=== PATIENT | female | born 1970 | race Caucasian/White ===

== ENCOUNTER 2017-01-01 12:32 | Inpatient (IN) | payer BC ==
[2016-12-26 10:59] LABS: BASOPHILS 0.1 %; BASOPHILS ABSOLUTE 0.01 10/3/uL (0.0-0.16); EOSINOPHILS 0.7 %; EOSINOPHILS ABSOLUTE 0.05 10/3/uL (0.0-0.53); HEMATOCRIT 42.4 % (36.0-48.0); HEMOGLOBIN 14.4 g/dL (12.0-16.0); IMMATURE GRANULOCYTES 0.1 %; IMMATURE GRANULOCYTES ABSOLUTE 0.01 10/3/uL (0.0-0.11); LYMPHOCYTES 24.6 %; LYMPHOCYTES ABSOLUTE 1.69 10/3/uL (0.67-4.30); MEAN CORPUSCULAR HEMOGLOB 31.8 pg (26.0-34.0); MEAN CORPUSCULAR VOLUME 93.6 fL (80-100); MEAN PLATELET VOLUME 9.5 fL (9.2-13.0); MONOCYTES 7.3 %; NEUTROPHILS 67.2 %; PLATELET COUNT 253 10/3/uL (150-400); RBC DISTRIBUTION WIDTH 13.4 % (12.0-16.0); RED CELL COUNT 4.53 10/6/uL (4.0-5.6); WHITE BLOOD CELLS 6.9 10/3/uL (4.5-10.5)
[2016-12-26 11:01] LABS: MANUAL DIFF NO %
[2016-12-26 11:07] LABS: PARTIAL THROMBO TIME 28.5 SEC (22.5-37.2); PROTIME (NOT ORD) 13.5 SEC (12.0-14.5)
--- NOTE | ~2017-01-01 | DS ---
Discharge Summary [facility] [address] [place]. [address] NAME: HERNAN ROGERS : 70 STATUS : DIS IN PAT#: [id number] AGE: 46 ADM/REG DATE : 01/01/17 MR#: [id number] REPORT SERV DATE: 01/15/17 DICTATED BY: SONG MOYER JR. DATE: 01/14/17 REPORT STATUS : Draft TRANSCRIBED BY: RADHA DATE: 01/14/17 Data Collection from hospitalization DISCHARGE DIAGNOSES: 1. Ventral hernia. 2. Hypertension. 3. Hypothyroidism. 4. Anxiety and depression. 5. Migraines. 6. Sleep apnea. 7. Acid reflux. 8. Tobacco use. CONSULTATIONS: None. PROCEDURES PERFORMED: Laparoscopic repair of ventral hernia on 01/01/2017. MEDICATIONS: ProAir two puffs via inhaler as needed, Wellbutrin 75 mg every morning, Lasix 40 mg every morning, Neurontin 600 mg three times a day, hydrochlorothiazide 25 mg every morning, Synthroid 75 mcg every morning, Prinivil 5 mg every morning, Prilosec 40 mg every morning, and Percocet 5/325 one to two tablets every six hours as needed. CONDITION AT DISCHARGE: Stable. DISPOSITION: The patient was discharged home on a soft diet with activities as instructed. She would follow up with me two weeks following discharge. HOSPITAL COURSE: This is a 46-year-old female who has a symptomatic ventral hernia. She had undergone previous laparoscopic surgery. Imaging did show herniation at the incision, which was superior to the umbilicus and also a separate site at the umbilical area. Treatment options were discussed and it was elected to proceed with surgical intervention. She was admitted to the hospital at this time for further evaluation and treatment. Upon admission, she was taken to the operating room where she underwent the above-mentioned procedure. She tolerated this well, and there were no complications. On postop day #1, she did complain of pain. Her abdomen was soft. Urine output was okay. Over the next couple of days, she continued to progress. Discharge planning was performed. We encouraged her to ambulate. On 01/04/2017, she continued to do well. Discharge instructions were given. Due to her improved and stable condition, she was discharged home with the above-stated instructions. Information collected by: Kacey Galvez I submit the above information as my discharge summary. TG/MODL Discharge Summary [place] [address] [place]. [address] NAME: HERNAN ROGERS : 70 STATUS : DIS IN PAT#: [id number] AGE: 46 ADM/REG DATE : 01/01/17 MR#: [id number] REPORT SERV DATE: 01/15/17 DICTATED BY: SONG MOYER JR. DATE: 01/14/17 REPORT STATUS : Draft TRANSCRIBED BY: MODJalen DATE: 01/14/17 Song Moyer Jr., M.D. / [id number] CC: Freda Knutson Jr., SARA E
--- NOTE | ~2017-01-01 | OP ---
Record Of Operation [facility] [address] [place]. [address] NAME: HERNAN ROGERS : 70 STATUS : ADM IN PAT#: [id number] AGE: 46 ADM/REG DATE : 01/01/17 MR#: [id number] REPORT SERV DATE: 01/02/17 DICTATED BY: SONG MOYER JR. DATE: 01/01/17 REPORT STATUS : Draft TRANSCRIBED BY: RADHA DATE: 01/01/17 DATE OF PROCEDURE: 01/01/2017 SURGEON: Sogn Moyer M.D. LOAD DISPATCHER LOCAL: [facility]. PROCEDURE: Laparoscopic repair of ventral hernia. PREOPERATIVE DIAGNOSIS: Ventral hernia. POSTOPERATIVE DIAGNOSIS: Ventral hernia. ANESTHESIA: General. INDICATIONS: This patient presented with symptomatic ventral hernia. She had previous laparoscopic surgery. Imaging did show herniation at the incision which was superior to the umbilicus and also a separate site at the umbilical area. FINDINGS: On laparoscopic exam of the abdomen, there was evidence of hernia superior to the umbilicus and also one at the umbilical site. There was an omentum that was incarcerated within the hernia sac that did require dissection with ligature and hemostasis of the extensive omental tissue within the sac; this was taken down. The hernia sacs were identified, and it was elected to proceed with an underlay Zenapro mesh due to the patient's obesity and risk factors. A 10- x 15-cm Zenapro hybrid mesh was utilized, sutures were placed of 12, 6, 3, and 9 of 0 Novafil. The mesh was introduced in the peritoneal cavity after hydration and appropriately oriented. Suture pass utilized to secure the sutures in place and then the absorbable tacker was utilized to secure the mesh to the overlying peritoneum. The sutures were tied, and this produced satisfactory coverage of the defect. Then, the right upper quadrant incision was closed at the fascial layer with 0 Vicryl placed through the suture passer, and the left upper quadrant was closed with fascial PDS. The wounds were then closed with dermal Monocryl. It should be noted that an open approach was utilized to the left upper quadrant with a balloon-tipped trocar, a 10 in the right and 2.5 for the right left lower quadrant. Sutures and sterile dressings were applied. The patient left the operating room in satisfactory condition. ESTIMATED BLOOD LOSS: 30 mL. JG/RADHA Song Moyer Jr., M.D. / [id number] Record Of Operation [address] [address] NAME: HERNAN ROGERS : 70 STATUS : ADM IN PAT#: [id number] AGE: 46 ADM/REG DATE : 01/01/17 MR#: [id number] REPORT SERV DATE: 01/02/17 DICTATED BY: SONG MOYER JR. DATE: 01/01/17 REPORT STATUS : Draft TRANSCRIBED BY: RADHA DATE: 01/01/17 CC: Song Moyer Jr., M.D.
[~2017-01-01 12:32] MED LIST: HYDROCHLOROT25 MG PO; L40 PO; NEUR600 PO; NORCO1 TAB PO; PRILOSEC40 MG PO; PRIN5 PO; PROAIR HFA INH; SYN075 PO; WELL75 PO
[2017-01-01 13:14] LABS: BUN (BLOOD UREA NITROGEN) 8 MG/DL (6-23); CALCIUM, SERUM 8.5 MG/DL (8.5-10.4); CHLORIDE, SERUM 106 MMOL/L (96-112); CREATININE 0.93 MG/DL (0.55-1.02); GFR AFRICAN AMERICAN 85 ML/MIN (>=60); GFR NON AFRICAN AMERICAN 74 ML/MIN (>=60); GLUCOSE, SERUM 97 MG/DL (60-99); POTASSIUM, SERUM 3.9 MMOL/L (3.5-5.3); SODIUM, SERUM 141 MMOL/L (135-148)
[2017-01-01 13:15] LABS: CO2 (CARBON DIOXIDE) 23 MMOL/L (24-34)
[2017-01-01 18:56] LABS: BASOPHILS 0 %; EOSINOPHILS 0 %; HEMOGLOBIN 14.7 g/dL (12.0-16.0); IMMATURE GRANULOCYTES 0.3 %; IMMATURE GRANULOCYTES ABSOLUTE 0.03 10/3/uL (0.0-0.11); LYMPHOCYTES 5.9 %; LYMPHOCYTES ABSOLUTE 0.64 10/3/uL (0.67-4.30); MEAN CORPUS HGB CONC 33.4 g/dL (32.0-36.0); MEAN CORPUSCULAR HEMOGLOB 31.7 pg (26.0-34.0); MEAN CORPUSCULAR VOLUME 94.8 fL (80-100); MEAN PLATELET VOLUME 9.5 fL (9.2-13.0); MONOCYTES 0.9 %; NEUTROPHILS 92.9 %; NEUTROPHILS ABSOLUTE 10.02 10/3/uL (2.02-8.40); PLATELET COUNT 221 10/3/uL (150-400); RBC DISTRIBUTION WIDTH 13.1 % (12.0-16.0); RED CELL COUNT 4.64 10/6/uL (4.0-5.6)
[2017-01-01 18:57] LABS: MANUAL DIFF NO %; WHITE BLOOD CELLS 10.8 10/3/uL (4.5-10.5)
[2017-01-01 19:08] LABS: BUN (BLOOD UREA NITROGEN) 8 MG/DL (6-23); CALCIUM, SERUM 8.4 MG/DL (8.5-10.4); CHLORIDE, SERUM 105 MMOL/L (96-112); GFR AFRICAN AMERICAN 78 ML/MIN (>=60); GFR NON AFRICAN AMERICAN 68 ML/MIN (>=60); GLUCOSE, SERUM 110 MG/DL (60-99); SODIUM, SERUM 141 MMOL/L (135-148)
[2017-01-01 19:09] LABS: CO2 (CARBON DIOXIDE) 28 MMOL/L (24-34)
[2017-01-02 06:21] LABS: BASOPHILS 0.2 %; BASOPHILS ABSOLUTE 0.03 10/3/uL (0.0-0.16); EOSINOPHILS 0.2 %; EOSINOPHILS ABSOLUTE 0.02 10/3/uL (0.0-0.53); HEMATOCRIT 40.6 % (36.0-48.0); HEMOGLOBIN 13.8 g/dL (12.0-16.0); IMMATURE GRANULOCYTES 0.6 %; IMMATURE GRANULOCYTES ABSOLUTE 0.07 10/3/uL (0.0-0.11); LYMPHOCYTES ABSOLUTE 0.85 10/3/uL (0.67-4.30); MANUAL DIFF NO %; MEAN CORPUSCULAR HEMOGLOB 31.6 pg (26.0-34.0); MEAN CORPUSCULAR VOLUME 92.9 fL (80-100); MEAN PLATELET VOLUME 9.6 fL (9.2-13.0); MONOCYTES 2.9 %; MONOCYTES ABSOLUTE 0.35 10/3/uL (0.21-1.20); NEUTROPHILS 89.1 %; NEUTROPHILS ABSOLUTE 10.74 10/3/uL (2.02-8.40); PLATELET COUNT 225 10/3/uL (150-400); RBC DISTRIBUTION WIDTH 13.4 % (12.0-16.0); RED CELL COUNT 4.37 10/6/uL (4.0-5.6); WHITE BLOOD CELLS 12.1 10/3/uL (4.5-10.5)
[2017-01-02 07:37] LABS: CHLORIDE, SERUM 104 MMOL/L (96-112); GLUCOSE, SERUM 123 MG/DL (60-99); SODIUM, SERUM 137 MMOL/L (135-148)
[2017-01-02 07:39] LABS: BUN (BLOOD UREA NITROGEN) 33 MG/DL (6-23); CALCIUM, SERUM 9.8 MG/DL (8.5-10.4); CO2 (CARBON DIOXIDE) 17 MMOL/L (24-34); CREATININE 1.54 MG/DL (0.55-1.02); GFR AFRICAN AMERICAN 46 ML/MIN (>=60); GFR NON AFRICAN AMERICAN 40 ML/MIN (>=60)
[2017-01-02 07:40] LABS: POTASSIUM, SERUM 5.4 MMOL/L (3.5-5.3)
[2017-01-02 16:09] LABS: BUN (BLOOD UREA NITROGEN) 11 MG/DL (6-23); CALCIUM, SERUM 8.2 MG/DL (8.5-10.4); CHLORIDE, SERUM 102 MMOL/L (96-112); CO2 (CARBON DIOXIDE) 30 MMOL/L (24-34); CREATININE 0.99 MG/DL (0.55-1.02); GFR AFRICAN AMERICAN 79 ML/MIN (>=60); GFR NON AFRICAN AMERICAN 68 ML/MIN (>=60); GLUCOSE, SERUM 101 MG/DL (60-99); POTASSIUM, SERUM 4.6 MMOL/L (3.5-5.3); SODIUM, SERUM 139 MMOL/L (135-148)
[2017-01-03 07:09] LABS: HEMATOCRIT 40.5 % (36.0-48.0); MEAN CORPUSCULAR HEMOGLOB 31.2 pg (26.0-34.0); MEAN PLATELET VOLUME 10.8 fL (9.2-13.0); PLATELET COUNT 195 10/3/uL (150-400); RBC DISTRIBUTION WIDTH 13.5 % (12.0-16.0); RED CELL COUNT 4.17 10/6/uL (4.0-5.6); WHITE BLOOD CELLS 11.5 10/3/uL (4.5-10.5)
[2017-01-03 07:10] LABS: MANUAL DIFF YES %; MEAN CORPUS HGB CONC 32.1 g/dL (32.0-36.0); MEAN CORPUSCULAR VOLUME 97.1 fL (80-100)
[2017-01-03 07:18] LABS: BUN (BLOOD UREA NITROGEN) 10 MG/DL (6-23); CALCIUM, SERUM 7.9 MG/DL (8.5-10.4); CHLORIDE, SERUM 107 MMOL/L (96-112); CREATININE 0.87 MG/DL (0.55-1.02); GFR AFRICAN AMERICAN 93 ML/MIN (>=60); GFR NON AFRICAN AMERICAN 80 ML/MIN (>=60); GLUCOSE, SERUM 110 MG/DL (60-99); SODIUM, SERUM 141 MMOL/L (135-148)
[2017-01-03 07:23] LABS: CO2 (CARBON DIOXIDE) 22 MMOL/L (24-34); POTASSIUM, SERUM 5.2 MMOL/L (3.5-5.3)
[2017-01-03 07:55] LABS: BAND NEUTROPHILS 7 %; LYMPHOCYTES 14 %; LYMPHOCYTES ABSOLUTE (CALC) 1.61 10/3/uL (0.67-4.30); MONOCYTES 2 %; MONOCYTES ABSOLUTE (CALC) 0.23 10/3/uL (0.21-1.20); NEUTROPHILS ABSOLUTE (CALC) 9.66 10/3/uL (2.02-8.40); PLATELET ESTIMATE ADQ (ADEQUATE); SEGMENTED NEUTROPHIL (0) 77 %; TOTAL NUCLEATED CELLS 100; TOXIC GRANULATION 1+
[2017-01-03 07:56] LABS: RBC MORPHOLOGY NORM (NORMAL)
[2017-01-04] MEDS ORDERED: PCET PO (12:54)
== END 2017-01-04 14:33 | disposition home or self-care (01) | DRG 354 ==
LOC: SDC/OF 12:32 → PACU 17:44 → 5SO 19:20
PROVIDERS: Specialist
PROC: 0WUF4JZ Supplement Abdominal Wall with Synthetic Substitute, Percutaneous Endoscopic Approach (ICD-10-PCS; principal; 2017-01-01 13:30)
DX: K43.9 Ventral hernia without obstruction or gangrene (principal); Z68.43 Body mass index [BMI] 50.0-59.9, adult; I10 Essential (primary) hypertension; E66.01 Morbid (severe) obesity due to excess calories; G47.33 Obstructive sleep apnea (adult) (pediatric); F17.210 Nicotine dependence, cigarettes, uncomplicated; F41.9 Anxiety disorder, unspecified; E03.9 Hypothyroidism, unspecified; Z88.5 Allergy status to narcotic agent; Z91.040 Latex allergy status; Z88.8 Allergy status to other drugs, medicaments and biological substances; Z91.030 Bee allergy status; Z79.899 Other long term (current) drug therapy; F32.9 Major depressive disorder, single episode, unspecified; K21.9 Gastro-esophageal reflux disease without esophagitis; Z85.43 Personal history of malignant neoplasm of ovary; Z96.641 Presence of right artificial hip joint; Z90.710 Acquired absence of both cervix and uterus
CPT/HCPCS: 71020; 80048; 83735; 85025; 85610; 85730; 87641; 93005; 94640; A9270-GY; C1713; C1781; J0330; J0690; J1170; J2250; J2405; J2550; J2710; J2795; J3010